=== PATIENT | male | born 2000 | race Asian ===

== ENCOUNTER 2023-05-27 07:07 | Emergency (ER) | payer MEDICAID ==
[~2023-05-27] VITALS: Ht 185.4 cm; Wt 108.9 kg
[2023-05-27 07:53] VITALS: BP 131/88; PULSE 120; RESP 16; TEMP 101.4; O2SAT 99
[2023-05-27 09:13] LABS: BASOPHILS % 0.7 % (0.0-2.0); EOSINOPHILS % 1.4 % (0.0-5.0); HEMOGLOBIN. 16.5 g/dL (14.0-18.0); LYMPHOCYTES % 10.1 % (20.0-50.0); MEAN CORPUSCULAR HEMOGLOBIN 26.9 pg (28.0-32.0); MEAN CORPUSCULAR HGB CONC 33.8 g/dL (31.0-37.0); MEAN CORPUSCULAR VOLUME 79.7 fL (80.0-94.0); MEAN PLATELET VOLUME 9.1 fl (7.4-10.4); MONOCYTES % 6.8 % (2.0-8.0); PLATELET 224 x1000/uL (130-400); RED BLOOD CELL COUNT 6.15 mill/uL (4.7-6.1); RED CELL DISTRIBUTION WIDTH 13.7 % (11.6-14.6)
[2023-05-27] MEDS ORDERED: TUSSL PO (09:13)
[2023-05-27] MEDS ORDERED: TOPUD PO (09:13)
[2023-05-27 09:15] LABS: DIFFERENTIAL COMMENT 1
[2023-05-27 09:52] LABS: ALANINE AMINOTRANSFERASE 85 IU/L (10-49); ALBUMIN 4.9 g/dL (3.2-4.8); ASPARTATE AMINOTRANSFERASE 29 IU/L (<34); BILIRUBIN TOTAL 0.5 mg/dL (0.1-1.0); CARBON DIOXIDE 27 mEq/L (21-32); CHLORIDE 103 mEq/L (98-107); CREATININE 0.9 mg/dL (0.6-1.3); GLUCOSE 98 mg/dL (70-105); POTASSIUM 4.7 mEq/L (3.5-5.1); PROTEIN TOTAL 8.3 g/dL (6.0-8.3); SODIUM 139 mEq/L (136-145); UREA NITROGEN BLOOD 9 mg/dL (9-23)
== END 2023-05-27 11:37 | disposition left against medical advice (07) ==
LOC: ER 07:22
DX: B34.9 Viral infection, unspecified (principal); R10.9 Unspecified abdominal pain
CPT/HCPCS: 36415; 71045; 80053; 85025; 93005; 99285